=== PATIENT | female | born 1965 | race Caucasian/White ===

== ENCOUNTER → 2020-06-10 | Outpatient (CLI) | payer BC, MEDICARE ==
--- NOTE | 2020-06-16 10:42 | P.ARTDOP ---
Arterial Doppler LOWER EXTREMITY ARTERIAL DOPPLER: DATE OF SERVICE: 06/10/2020 Reason for study: Thigh pain when walking. Doppler waveforms: Multiphasic throughout on the right with somewhat blunted toe pressures. Atypical throughout on the left with blunted digital waveforms. Pulse volume recording: []. Pressure gradients: None on the right except at the toe level. Gradient above the thigh on the left.. Ankle-brachial indices: Greater than 1 on the right. 0.62 on the left.. Toe brachial indices: 0.48 on the right, 0.54 on the left Impression: Right is probably normal with low pressures secondary to vasospastic phenomenon. 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 Clinical correlation recommended..
== END | disposition home or self-care (01) ==
LOC: RADUSWWP 10:07
PROVIDERS: ATTEND Family Medicine
DX: M79.606 Pain in leg, unspecified (principal)
CPT/HCPCS: 93923

== ENCOUNTER → 2020-07-27 | Outpatient (CLI) | payer BC, MEDICARE ==
[2020-07-27 09:45] LABS: HCT 41.7 % (34.0-46.0); MCH 32.6 pg (25.0-35.0); MCHC 33.7 g/dL (31.0-37.0); MCV 96.9 fL (80.0-100.0); Mean Platelet Volume 7.6; Platelet Count 318 k/uL (150-450); RDW 13.1 % (11.5-15.5); WBC 7.2 k/uL (3.8-10.6)
[2020-07-27 09:49] LABS: Potassium 4.3 mmol/L (3.5-5.1)
== END | disposition home or self-care (01) ==
LOC: LABPAT 07:52
PROVIDERS: ATTEND Internal Medicine Interventional Cardiology
DX: Z01.818 Encounter for other preprocedural examination (principal); I70.213 Atherosclerosis of native arteries of extremities with intermittent claudication, bilateral legs
CPT/HCPCS: 36415; 80051; 82565; 84520; 85027

== ENCOUNTER → 2020-08-23 | Outpatient (CLI) | payer BC, MEDICARE ==
[2020-08-23 08:56] LABS: HGB 13.8 gm/dL (11.4-16.0); MCH 32.5 pg (25.0-35.0); MCHC 33.7 g/dL (31.0-37.0); MCV 96.5 fL (80.0-100.0); Mean Platelet Volume 7.6; Platelet Count 285 k/uL (150-450); RBC 4.25 m/uL (3.80-5.40); RDW 13.3 % (11.5-15.5); WBC 7.2 k/uL (3.8-10.6)
[2020-08-23 15:58] LABS: African American GFR (CKD) 84.6 (60.0-200.0); Anion Gap 9.9 mmol/L (4.00-12.00); Carbon Dioxide 25.1 mmol/L (21.6-31.8); Potassium 4.1 mmol/L (3.5-5.5)
== END | disposition home or self-care (01) ==
LOC: LABWHC1 07:59
PROVIDERS: ATTEND Internal Medicine Interventional Cardiology
DX: Z01.818 Encounter for other preprocedural examination (principal); I70.212 Atherosclerosis of native arteries of extremities with intermittent claudication, left leg
CPT/HCPCS: 36415; 80051; 82565; 84520; 85027

== ENCOUNTER 2020-09-01 06:23 | Day surgery (SDC) | payer BC, MEDICARE ==
[2020-08-30 10:25] VITALS: BMI 26.3
[2020-09-01] MEDS ORDERED: ASPIRIN 325 MG TAB PO PRN (06:29)
[2020-09-01] MEDS ORDERED: HEPARIN SODIUM,PORCINE 2,500 UNIT in SODIUM CHLORIDE 0.9% 250 ML IRRIGATION PRN (06:29)
[2020-09-01] MEDS ORDERED: HEPARIN SODIUM,PORCINE 10,000 UNIT in SODIUM CHLORIDE 0.9% 1,000 ML IRRIGATION PRN (06:29)
[2020-09-01] MEDS ORDERED: ZOLPIDEM 5 MG TAB PO PRN (06:29)
[2020-09-01] MEDS ORDERED: SODIUM CHLORIDE 0.9% 1,000 ML in EMPTY BAG 1 BAG IV ONE (06:29)
[2020-09-01] MEDS ORDERED: ALPRAZolam 0.25 MG TAB PO PRN (06:29)
[2020-09-01] MEDS ORDERED: MIDAZOLAM 2 MG/2 ML VIAL IVP ONE (07:45)
[2020-09-01] MEDS ORDERED: LIDOCAINE 1% INJ 10MG/ML (20 ML MDV) SQ ONE (07:47)
[2020-09-01] MEDS ORDERED: fentaNYL (PF) 50 MCG/ML 2 ML AMP IVP ONE (07:49)
[2020-09-01] MEDS ORDERED: MIDAZOLAM 2 MG/2 ML VIAL IV ONE (08:00)
[2020-09-01] MEDS ORDERED: HYDROmorphone 1 MG/ML 1 ML SYRINGE IVP ONE (08:00)
[2020-09-01] MEDS ORDERED: CLOPIDOGREL 75 MG TAB PO ONE (08:37)
[2020-09-01] MEDS ORDERED: IOPAMIDOL-370 100ML BTL INJ ONE (08:37)
[2020-09-01] MEDS ORDERED: IBUPROFEN 600 MG TAB PO PRN (08:45)
[2020-09-01] MEDS ORDERED: ALPRAZolam 0.5 MG TAB PO PRN (08:45)
[2020-09-01] MEDS ORDERED: SODIUM CHLORIDE 0.9% 1,000 ML in EMPTY BAG 1 BAG IV SCH (08:45)
[2020-09-01 09:14] VITALS: RESP 16
--- NOTE | 2020-09-01 09:24 | IR ---
Fluoroscopy HISTORY: Pain in left leg 8.6 minutes fluoroscopy time supplied to the referring clinician. 369 intraoperative C-arm images do cument the procedure. See dictated report from cardiology.
--- NOTE | 2020-09-01 09:28 | LTR ---
September 01, 2020 Re: Franca Figueroa Dear Dr. Banerjee: Ms. Franca Figueroa underwent today successful percutaneous intervention of totally occluded left iliac artery with an excellent angiographic result and without any complication. Thank you again for allowing me to participate in the care of the patient and please do not hesitate to call if you have any question or concern. Sincerely, MD ESTELLA Perez / TERRIEN: [id number] /
--- NOTE | 2020-09-01 09:40 | AN ---
ANGIOGRAPHY REPORT PERCUTANEOUS PERIPHERAL INTERVENTION: DATE OF SERVICE: September 01, 2020 PERFORMING PHYSICIAN: Arash Jeong MD. PROCEDURE PERFORMED: 1. Successful stenting of the left external iliac artery using 6.0 x 59 mm balloon expandable stent with an excellent angiographic results. 2. Intravascular ultrasound (IVUS) of the left external iliac artery. 3. Left external iliac artery angiogram. 4. Left lower extremity angiogram. 5. Right common femoral artery angiogram. 6. Ultrasound-guided access of the right common femoral artery. INDICATION: This is a 54-year-old female patient who was seen in the office recently for left leg intermittent claudication. She underwent an angiogram and that revealed occluded left external iliac artery and she was brought today to undergo an intervention. APPROACH: Right common femoral artery. COMPLICATION: None. LEVEL OF SEDATION: Moderate with a sedation length of 74 minutes. PROCEDURE DESCRIPTION: After obtaining an informed consent, the patient was brought to the cardiac slab depiler operator. The right common femoral artery was cannulated using micropuncture technique and a micropuncture wire passed easily then I placed an 11 cm 5-Moldovan sheath at the right common femoral artery. After that I did an aortogram to assess the lesion in the left external iliac artery, that was performed using 5-Moldovan pigtail catheter. After that I did exchange my 11 cm 5-Moldovan sheath into 55 cm 6-Moldovan Raabe sheath using 0.035 stiff Glidewire with backup support of 5-Moldovan RIM catheter. After that I did left external iliac artery angiogram and left lower extremity angiogram. The lesion was crossed using 0.035 stiff Glidewire, which was after that exchanged into 0.014 wire using 0.035 CXI catheter. After that I did intravascular ultrasound which revealed an area of about 6 mm in diameter. Predilatation was performed using 5 mm balloon and then I deployed 6 x 59 mm balloon expandable stent. The stent was positioned under fluoroscopy guidance and deployed under fluoroscopic guidance. After that I did an angiogram which showed good angiographic results. That was documented by IVUS as well. The procedure was completed without any complication. After that, I pulled the sheath back to the right common femoral artery before I did the right common femoral artery angiogram and before I deployed the Perclose device. The procedure was performed without any complication. Please note that the patient was given a total of 6000 units of heparin IV at the beginning of the procedure with continuous ACT monitoring throughout the procedure. POSTPROCEDURE MANAGEMENT: 1. Dual anti-platelet therapy. 2. Risk factor modifications. 3. Follow up with the patient. ESTELLA / ADIEL: [id number] /
[2020-09-01] MEDS: FAMOTIDINE 20 MG TAB PO SCH (10:01)
[2020-09-01] MEDS ORDERED: CYCLOBENZAPRINE 5 MG TAB PO SCH (21:00)
[2020-09-02 02:10] VITALS: TEMP 97.9
[2020-09-02] MEDS: FAMOTIDINE 20 MG TAB PO SCH (07:12)
[2020-09-02 07:57] VITALS: BP 143/88; PULSE 72
[2020-09-02 08:34] LABS: Basophils # (A) 0.04 X 10*3/uL (0.00-0.10); Basophils % (A) 0.5 %; Eosinophils # (A) 0.35 X 10*3/uL (0.04-0.35); Eosinophils % (A) 4.5 %; HCT 36.7 % (37.2-46.3); Lymphocytes # (A) 1.79 X 10*3/uL (0.90-5.00); Lymphocytes % (A) 22.9 %; MCH 31.7 pg (27.0-32.0); MCHC 32.7 g/dL (32.0-37.0); MCV 96.8 fL (80.0-97.0); Mean Platelet Volume 10.3 fL (9.5-12.2); Monocytes % (A) 10.3 %; Neutrophils % (A) 61.5 %; Platelet Count 258 X 10*3/uL (140-440); RBC 3.79 X 10*6/uL (4.10-5.20)
[2020-09-02 10:23] LABS: African American GFR (CKD) 97.6 (60.0-200.0); Anion Gap 6.9 mmol/L (4.00-12.00); BUN/Creat Ratio 26.25 Ratio (12.00-20.00); Calcium 8.7 mg/dL (8.7-10.3); Carbon Dioxide 25.1 mmol/L (21.6-31.8); Non-African American GFR(CKD) 84.2 (60.0-200.0); Potassium 4.1 mmol/L (3.5-5.5)
--- NOTE | 2020-09-02 21:21 | DS ---
DISCHARGE SUMMARY BRIEF HISTORY: This is a 54-year-old female patient who underwent yesterday successful stenting of the left external iliac artery. The procedure was performed from the right groin, which is soft and nontender and without any bruises. The patient is going to be discharged home on dual anti-platelet therapy and high- intensity statin. MMODL / TERRIEN: [id number] /
== END 2020-09-02 09:53 | disposition home or self-care (01) ==
LOC: CATHCVL 06:23 → 6NMEDSUR 08:34 → CATHCVL 09-02 09:53
PROVIDERS: ATTEND Internal Medicine Interventional Cardiology
DX: I74.5 Embolism and thrombosis of iliac artery (principal); I73.9 Peripheral vascular disease, unspecified; E78.5 Hyperlipidemia, unspecified; Z82.49 Family history of ischemic heart disease and other diseases of the circulatory system; Z88.5 Allergy status to narcotic agent; Z87.891 Personal history of nicotine dependence; Z79.1 Long term (current) use of non-steroidal anti-inflammatories (NSAID); Z79.899 Other long term (current) drug therapy
CPT/HCPCS: 37221; 75710; 37252; 80048; 85025; C1894 ×3; C1769 ×5; C1876; C1753; C1760; C1725; J2250; J2001; J3010; J1170; J1644; Q9967

== ENCOUNTER → 2021-03-04 | Outpatient (CLI) | payer BC, MEDICARE ==
[2021-03-04 13:01] LABS: HCT 42.3 % (34.0-46.0); HGB 14.1 gm/dL (11.4-16.0); MCHC 33.4 g/dL (31.0-37.0); MCV 95.7 fL (80.0-100.0); Mean Platelet Volume 7.8; Platelet Count 311 k/uL (150-450); RBC 4.42 m/uL (3.80-5.40); RDW 13.9 % (11.5-15.5); WBC 7.5 k/uL (3.8-10.6)
[2021-03-04 13:09] LABS: Potassium 4.6 mmol/L (3.5-5.1)
== END | disposition home or self-care (01) ==
LOC: LABPAT 11:55
PROVIDERS: ATTEND Internal Medicine Interventional Cardiology
DX: Z01.812 Encounter for preprocedural laboratory examination (principal); R07.9 Chest pain, unspecified
CPT/HCPCS: 36415; 80051; 82565; 84520; 85027

== ENCOUNTER 2021-05-27 16:12 | Emergency (ER) | payer BC, MEDICARE ==
[2021-05-27 16:52] VITALS: TEMP 98.8
[2021-05-27 18:26] VITALS: BP 126/80; PULSE 93; RESP 20
--- NOTE | 2021-05-27 18:36 | US ---
EXAMINATION TYPE: US venous doppler duplex LE LT DATE OF EXAM: 05/27/2021 6:04 PM COMPARISON: NONE CLINICAL HISTORY: swelling. Ankle pain. On blood thinners. No injury. Recent cast. SIDE PERFORMED: Left TECHNIQUE: The lower extremity deep venous system is examined utilizing real time linear array sonog tomas with graded compression, doppler sonography and color-flow sonography. VESSELS IMAGED: Common Femoral Vein Deep Femoral Vein Greater Saphenous Vein * Femoral Vein Popliteal Vein Small Saphenous Vein * Proximal Calf Veins (* superficial vessels) Left Leg: Negative for DVT IMPRESSION: No evidence of deep vein thrombosis in the left leg.
--- NOTE | 2021-05-27 18:44 | ED ---
Extremity Problem HPI - General Chief complaint: Extremity Problem,Nontraumatic Stated complaint: R/O DVT Time Seen by Provider: 05/27/21 17:28 Source: patient Mode of arrival: ambulatory Limitations: no limitations - History of Present Illness Initial comments: Franca is a 55-year-old female who is was sent to the emergency department today by her business information manager for evaluation of a possible DVT. Patient has apparently had intermittent casting on her left foot. She began having some pain in her left calf yesterday, cast was removed today and she was told to come to the emergency department for evaluation of a possible DVT. He has a history of TIAs in the past she is on aspirin and Plavix. She's not had any significant swelling or edema of that leg. Kyle has been somewhat painful while in the cast and despite having the cast taken off she does have some numbness on the inner foot. - Related Data Home Medications Medication Instructions Recorded Confirmed Ibuprofen [Motrin] 600 mg PO Q8HR PRN 10/15/15 09/01/20 ALPRAZolam [Xanax] 0.5 mg PO DAILY PRN 08/30/20 09/01/20 Cyclobenzaprine [Flexeril] 5 mg PO HS 08/30/20 09/01/20 Famotidine 40 mg PO DAILY 08/30/20 09/01/20 Previous Rx's Medication Instructions Recorded Aspirin 81 mg PO DAILY #90 chewable 09/02/20 Atorvastatin Calcium [Lipitor] 80 mg PO DAILY #90 tablet 09/02/20 Clopidogrel [Plavix] 75 mg PO DAILY #90 tablet 09/02/20 Allergies Allergy/AdvReac Type Severity Reaction Status Date / Time codeine Allergy Nausea & Verified 05/27/21 16:52 Vomiting narcotic pain medication Allergy Severe Nausea & Uncoded 05/27/21 16:52 Vomiting Review of Systems ROS Statement: Those systems with pertinent positive or pertinent negative responses have been documented in the HPI. ROS Other: All systems not noted in ROS Statement are negative. Past Medical History Past Medical History: CVA/TIA Additional Past Medical History / Comment(s): has had 7 TIA's in the past-no effects from them, varicose vein, hiatal hernia, History of Any Multi-Drug Resistant Organisms: None Reported Past Surgical History: Cholecystectomy, Hysterectomy, Orthopedic Surgery Additional Past Surgical History / Comment(s): yg wrist surgery, left shoulder arthroscopy, left hand ring fingery surgery Past Anesthesia/Blood Transfusion Reactions: Postoperative Nausea & Vomiting (PONV) Past Psychological History: No Psychological Hx Reported Smoking Status: Never smoker Past Alcohol Use History: None Reported Past Drug Use History: None Reported - Past Family History Mother Family Medical History: Cancer, Deep Vein Thrombosis (DVT) General Exam - General Exam Comments Initial Comments: Physical Exam GENERAL: Patient is well-developed and well-nourished. Patient is nontoxic and well-hydrated and is in no distress. HENT: Normocephalic, Atraumatic. EYES: PERRL, EOMI PULMONARY: Unlabored respirations. CARDIOVASCULAR: RRR Warm and well perfused extremities ABDOMEN: Non-distended SKIN: No rashes or bruising : Deferred NEUROLOGIC: Alert and oriented Normal speech Normal gait MUSCULOSKELETAL: Moving all extremities with no apparent injury Left leg is actually centered from the right from recurrent casting, there is no pitting edema, there are strong pulses bilaterally, cap refill is less than 2 seconds bilaterally PSYCHIATRIC: No SI/HI Limitations: no limitations Course Vital Signs 05/27/21 05/27/21 16:49 18:24 Temperature 98.8 F Pulse Rate 75 93 Respiratory 16 20 Rate Blood Pressure 119/69 126/80 O2 Sat by Pulse 98 97 Oximetry Medical Decision Making - Medical Decision Making The patient was seen and evaluated this physical exam findings suggestive of the however ultrasound was obtained and revealed no evidence of DVT. Results were discussed with the patient. Discussed with patient that likely her pain was from casting she may have paresthesias in the left foot secondary to nerve compression or recommended to continue follow-up with business information manager. Disposition Clinical Impression: Leg pain Disposition: HOME SELF-CARE Condition: Stable Instructions (If sedation given, give patient instructions): Leg Pain (ED) Is patient prescribed a controlled substance at d/c from ED?: No Referrals: Rigo Banerjee MD [Primary Care Provider] - 1-2 days
== END 2021-05-27 19:26 | disposition home or self-care (01) ==
LOC: EC 16:12
DX: M79.605 Pain in left leg (principal); Z86.73 Personal history of transient ischemic attack (TIA), and cerebral infarction without residual deficits; Z79.82 Long term (current) use of aspirin; Z79.02 Long term (current) use of antithrombotics/antiplatelets; Z88.5 Allergy status to narcotic agent; Z90.49 Acquired absence of other specified parts of digestive tract; Z90.710 Acquired absence of both cervix and uterus
CPT/HCPCS: 99283

== ENCOUNTER → 2021-09-14 | Outpatient (CLI) | payer BC, MEDICARE | END | disposition home or self-care (01) | LOC: RADUSWWP 08:50 | PROVIDERS: ATTEND Podiatrist | DX: Z01.818 Encounter for other preprocedural examination (principal); M25.572 Pain in left ankle and joints of left foot; Z98.62 Peripheral vascular angioplasty status | CPT/HCPCS: 93923 ==

== ENCOUNTER → 2022-11-20 | Outpatient (CLI) | payer BC, MEDICARE ==
--- NOTE | 2022-11-21 17:48 | MM ---
Reason for Exam: Screening (asymptomatic). Last mammogram was performed 12 year(s) and 9 month(s) ago. Patient History: Menarche at age 18. First Full-Term at age 29. Postmenopausal. Risk Values: Delfina 5 year model risk: 1.2%. NCI Lifetime model risk: 8.1%. Prior Study Comparison: No prior studies available for comparison. Tissue Density: The breast tissue is heterogeneously dense. This may lower the sensitivity of mammography. Findings: Analyzed By CAD. No significant mass, suspicious microcalcification, or other discrete abnormality seen. Overall Assessment: Negative, BI-RAD 1 Management: Screening Mammogram of both breasts in 1 year. 1. Patient should continue monthly self breast exams. 2. A clinical breast exam by your physician is recommended on an annual basis. 3. This exam should not preclude additional follow-up of suspicious palpable abnormalities. Electronically signed and approved by: Saul Wang M.D. Radiologist
== END | disposition home or self-care (01) ==
LOC: RADMAMWWP 13:30
PROVIDERS: ATTEND Family Medicine
DX: Z12.31 Encounter for screening mammogram for malignant neoplasm of breast (principal); Z78.0 Asymptomatic menopausal state
CPT/HCPCS: 77067

== ENCOUNTER → 2023-11-22 | Outpatient (CLI) | payer BC, MEDICARE ==
--- NOTE | 2023-11-26 09:02 | MM ---
Reason for Exam: Screening (asymptomatic). Last screening mammogram was performed 12 month(s) ago. Patient History: Menarche at age 18. First Full-Term at age 29. Postmenopausal. Risk Values: Delfina 5 year model risk: 1.3%. NCI Lifetime model risk: 8.0%. Prior Study Comparison: 10/04/2001 Bilateral Special View Mammogram, [facility]. 02/24/2010 Bilateral Screening Mammogram, [facility]. 11/20/2022 Bilateral MG screening mammo w CAD, [facility]. Tissue Density: The breasts are heterogeneously dense, which may obscure small masses. Findings: Analyzed By CAD. There is a new 6 mm nodule along the lower inner margin left breast. No suspicious grouped calcifications. Punctate benign calcification within the right breast. Overall Assessment: Incomplete: need additional imaging evaluation, BI-RAD 0 Management: Diagnostic Mammogram of the left breast. . Patient should continue monthly self-breast exams. A clinical breast exam by your physician is recommended on an annual basis. This exam should not preclude additional follow-up of suspicious palpable abnormalities. Note on Delfina scores and lifetime risk: 1. A Delfina score greater than 3% is considered moderate risk. If this is the case, consider specialist referral to assess eligibility for a risk reducing agent. 2. If overall lifetime risk for the development of breast cancer is 20% or higher, the patient may qualify for future screening with alternating mammogram and breast MRI. Electronically signed and approved by: Rigo Juarez M.D. Radiologis
== END | disposition home or self-care (01) ==
LOC: RADMAMWWP 08:14
PROVIDERS: ATTEND Family Medicine
DX: Z12.31 Encounter for screening mammogram for malignant neoplasm of breast (principal); Z78.0 Asymptomatic menopausal state
CPT/HCPCS: 77067

== ENCOUNTER → 2023-11-29 | Outpatient (CLI) | payer BC, MEDICARE ==
--- NOTE | 2023-11-29 09:46 | MM ---
Reason for Exam: Additional evaluation requested from abnormal screening. Last screening mammogram was performed less than 1 month ago. Patient History: Menarche at age 18. First Full-Term at age 29. Postmenopausal. Risk Values: Delfina 5 year model risk: 1.3%. NCI Lifetime model risk: 8.0%. Prior Study Comparison: 02/24/2010 Bilateral Screening Mammogram, [facility]. 11/20/2022 Bilateral MG screening mammo w CAD, [facility]. 11/22/2023 Bilateral MG screening mammo w CAD, [facility]. Tissue Density: Left: The breasts are heterogeneously dense, which may obscure small masses. Findings: Analyzed By CAD. Heart is stable. There is a slight area of increased density within the lower inner anterior aspect left breast. This is less distinct on the compression views. This is not apparent on the lateral view. This is approximately 0.5 cm in size located 6 cm from the nipple. Additional evaluation with ultrasound is recommended. Overall Assessment: Incomplete: need additional imaging evaluation, BI-RAD 0 Management: Diagnostic Breast Ultrasound of the left breast. A negative mammogram report should not preclude additional follow up of suspicious palpable abnormalities. Patient should continue monthly self breast exam. A clinical breast exam by your physician is recommended on an annual basis and results should be correlated with mammographic findings. Note on Delfina scores and lifetime risk: 1. A Delfina score greater than 3% is considered moderate risk. If this is the case, consider specialist referral to assess eligibility for a risk reducing agent. 2. If overall lifetime risk for the development of breast cancer is 20% or higher, the patient may qualify for future screening with alternating mammogram and breast MRI. Electronically signed and approved by: Fuad Salcido D.O. Radiologis
--- NOTE | 2023-11-29 10:38 | USB ---
Reason for Exam: Additional evaluation requested from abnormal screening. Patient History: Menarche at age 18. First Full-Term at age 29. Postmenopausal. Risk Values: Delfina 5 year model risk: 1.3%. NCI Lifetime model risk: 8.0%. Technique: Method: Targeted. Prior Study Comparison: 02/24/2010 Bilateral Screening Mammogram, [facility]. 11/20/2022 Bilateral MG screening mammo w CAD, [facility]. 11/22/2023 Bilateral MG screening mammo w CAD, [facility]. Findings: The lower inner quadrant of the left breast, the axilla of the left breast and the retroareolar of the left breast were scanned. There is a solid area with a hypoechoic center. This may be taller than wide. This area measures 0.3 x 0.4 x 0.5 cm and contains vascular flow. Area corresponds with the mammogram. Overall Assessment: Suspicious, BI-RAD 4 Management: Ultrasound Core Biopsy of the left breast. A clinical breast exam by your physician is recommended on an annual basis and results should be correlated with mammographic findings. This exam should not preclude additional follow-up of suspicious palpable abnormalities. Results were given to the patient verbally at the time of exam. Electronically signed and approved by: Fuad Salcido D.O. Radiologis
== END | disposition home or self-care (01) ==
LOC: RADMAMWWP 09:21
PROVIDERS: ATTEND Family Medicine
DX: R92.332 Mammographic heterogeneous density, left breast (principal); Z78.0 Asymptomatic menopausal state
CPT/HCPCS: 77061; 77065

== ENCOUNTER → 2023-12-07 | Day surgery (SDC) | payer BC, MEDICARE ==
--- NOTE | 2023-12-07 16:28 | USB ---
Risk Values: Delfina 5 year model risk: 1.3%. NCI Lifetime model risk: 8.0%. Findings: The patient's mammogram and ultrasound is reviewed. At the 8:00 position, 5 cm from the nipple, there is redemonstration of a vague echogenic area currently measuring 6 mm versus 7 mm, previously. The internal associated cystic portion is smaller now 2 mm versus 5 mm, previously. Given these changes, patient's history of blood thinner use, superficial location, and appearance on mammogram, a small hematoma is favored. We are deferring biopsy at this time. 3 month follow-up diagnostic left breast mammogram and left breast ultrasound will be recommended to ensure involution. Results and impression were discussed with the patient. Management: Diagnostic Mammogram of the left breast in 3 months. Additional 3 month followup left breast ultrasound. Electronically signed and approved by: Saul Wang M.D. Radiologist
== END ==
LOC: RADUSWWP 09:35
PROVIDERS: ATTEND Family Medicine
DX: R92.8 Other abnormal and inconclusive findings on diagnostic imaging of breast (principal)

== ENCOUNTER → 2024-06-25 | Outpatient (CLI) | payer BC, MEDICARE ==
[2024-06-26 02:32] LABS: HCT 42.6 % (37.2-46.3); HGB 14.1 g/dL (12.0-15.0); MCH 31.3 pg (27.0-32.0); MCHC 33.1 g/dL (32.0-37.0); MCV 94.7 FL (80.0-97.0); Mean Platelet Volume 10.7 FL (9.5-12.2); NRBC Per 100 WBC 0 X 10*3/uL (0.00-0.01); Platelet Count 312 X 10*3/uL (140-440); RDW 12.9 % (11.5-14.5); WBC 8.73 X 10*3/uL (4.50-10.00)
[2024-06-26 03:41] LABS: Carbon Dioxide 22.9 mmol/L (21.6-31.8); Chloride 106 mmol/L (96-109); Potassium 4.5 mmol/L (3.5-5.5); Sodium 142 mmol/L (135-145)
== END | disposition home or self-care (01) ==
LOC: LABPAT 15:13
PROVIDERS: ATTEND Internal Medicine Interventional Cardiology
DX: Z01.812 Encounter for preprocedural laboratory examination (principal); I70.213 Atherosclerosis of native arteries of extremities with intermittent claudication, bilateral legs
CPT/HCPCS: 80051; 82565; 84520; 85027

== ENCOUNTER 2024-07-02 06:00 | Day surgery (SDC) | payer BC, MEDICARE ==
[2024-06-25 11:44] VITALS: BMI 24.6
[~2024-07-02 06:00] MED LIST: ALPRAZolam 0.25 MG TAB PO PRN; ALPRAZolam 0.5 MG TAB PO PRN; HEPARIN SODIUM,PORCINE (1 ML) 2,500 UNIT in SODIUM CHLORIDE 0.9% 250 ML IRRIGATION PRN; HEPARIN SODIUM,PORCINE 10,000 UNIT in SODIUM CHLORIDE 0.9% 1,000 ML IRRIGATION PRN; ZOLPIDEM 5 MG TAB PO PRN
[2024-07-02] MEDS: EMPTY BAG 1 BAG with SODIUM CHLORIDE 0.9% 1,000 ML IV SCH (06:36)
[2024-07-02] MEDS: IV FLUID CONTINUATION 1,000 ML IV ONE (06:37)
[2024-07-02] MEDS: HEPARIN SODIUM,PORCINE 10,000 UNIT in SODIUM CHLORIDE 0.9% 1,000 ML IRRIGATION ONE (07:39)
[2024-07-02] MEDS: MIDAZOLAM 2 MG/2 ML VIAL IVP ONE ×4 (07:42→08:21)
[2024-07-02] MEDS: LIDOCAINE 1% INJ 10MG/ML (20 ML MDV) SQ ONE ×2 (07:43→07:44)
[2024-07-02] MEDS: HEPARIN SODIUM 1,000 UN/ML (10ML VL) IVP ONE ×2 (07:58→08:55)
[2024-07-02] MEDS: IOPAMIDOL-370 100ML BTL INJ ONE (09:19)
[2024-07-02] MEDS ORDERED: ALPRAZolam 0.5 MG TAB PO PRN (09:23)
[2024-07-02] MEDS ORDERED: NALOXONE 0.4 MG/ML 1 ML VIAL IVP PRN (09:25)
--- NOTE | 2024-07-02 09:34 | P.PCN ---
Date of Procedure: 07/02/24 Operative Findings: PERCUTANEOUS PERIPHERAL INTERVENTION Performing physician Arash Jeong M.D. Procedure performed 1. Successful balloon angioplasty and stenting of the right SFA 2. Successful stenting of the left common iliac artery 3. Adjunctive use of IVUS and atherectomy 4. An aortogram with runoff 5. ultrasound-guided access of the left common femoral artery and left common femoral artery angiogram Indication Intermittent claudication in this 58-year-old female patient who underwent an a rterial duplex study came in to be abnormal Approach Left common femoral Complications None Level of sedation Moderate with a sedation time of 88 minutes Procedure description After obtaining informed consent the patient was brought to the cardiac Corporate Aircraft Mechanic. The left common femoral artery was cannulated using micropuncture technique under ultrasound guidance a micropuncture wire passed easily then I placed a 6 Tanzanian 11 cm sheath at the left common femoral artery. After that I did an aortogram with runoff using 5 Tanzanian pigtail catheter which was initially placed at the level of the renal arteries and it was pulled back into above the bifurcation of the aorta into right and left common iliac arteries. After the angiogram was performed and the runoff was reviewed we decided to intervene on the right SFA and left iliac. Anticoagulation was initiated using heparin with continuous ACT monitoring. Subsequently I did exchange my 11 cm 6 Tanzanian sheath into a 70 cm 6 Tanzanian sheath using 035 stiff Glidewire. I did go up and over to the right SFA using a 3 5 stiff Glidewire with the backup support of 5 Tanzanian rim catheter. Subsequently the sheath was advanced over the wire and the catheter to the right common femoral artery. An angiogram was performed at that point to identify in the lesion in the right SFA. The lesion was crossed using a 1 4 wire. I did IVUS which showed a soft lesion appeared to be extremely tight. I did atherectomy using the Rota Ryder device. After that balloon angioplasty was performed using 5 mm balloon with an adequate angiographic results and for that reason I decided to stent. I deployed a 6.0 x 80 mm Zilver PTX drug-coated stent with an angiogram was performed after that and showed that there was an edge dissection did not tackle with balloon angioplasty which I decided to cover using another stent. I deployed another 6.0 x 60 mm Zilver PTX drug-coated stent with about 2 mm overlap between the 2 stents. An angiogram after that after postdilatation was performed showed good angiographic results. After that I did pull the sheath into the left common iliac artery and angiogram also was performed and showed that there was a dissection and a tight lesion involving the left common iliac artery just proximal to the stent in the left external iliac artery. I did direct stenting on that using 8.0 x 59 mm balloon expandable stent with an excellent angiographic results. By the end I did exchange my long sheath into short sheath using a 3 5 stiff Glidewire before I did selective left common femoral artery angiogram. The procedure was completed with no complication Postprocedure management 1. Dual antiplatelet therapy 2. Aggressive cholesterol control 3. Risk factors modification 4. Follow-up with the patient
[2024-07-02] MEDS: SODIUM CHLORIDE 0.9% 1,000 ML in EMPTY BAG 1 BAG IV SCH (12:55)
[2024-07-02 14:44] LABS: Basophils % (A) 1 %; Eosinophils # (A) 0.2 k/uL (0-0.7); Eosinophils % (A) 3 %; HCT 35.3 % (34.0-46.0); HGB 11.7 gm/dL (11.4-16.0); Lymphocytes # (A) 1.2 k/uL (1.0-4.8); Lymphocytes % (A) 19 %; MCH 31.7 pg (25.0-35.0); MCHC 33.3 g/dL (31.0-37.0); MCV 95.2 fL (80.0-100.0); Mean Platelet Volume 7.3; Monocytes # (A) 0.4 k/uL (0-1.0); Monocytes % (A) 7 %; Neutrophils # (A) 4.3 k/uL (1.3-7.7); Neutrophils % (A) 70 %; Platelet Count 209 k/uL (150-450); RDW 12.9 % (11.5-15.5); WBC 6.2 k/uL (3.8-10.6)
[2024-07-02 14:54] LABS: African American GFR (CKD) >90 (>60 ml/min/1.73 sqM); Anion Gap 4 mmol/L; Blood Urea Nitrogen 14 mg/dL (7-17); Calcium 8.1 mg/dL (8.4-10.2); Carbon Dioxide 21 mmol/L (22-30); Chloride 114 mmol/L (98-107); Glucose 129 mg/dL (74-99); Non-African American GFR(CKD) 79 (>60 ml/min/1.73 sqM); Potassium 3.6 mmol/L (3.5-5.1); Sodium 139 mmol/L (137-145)
--- NOTE | 2024-07-02 15:26 | IR ---
EXAMINATION TYPE: IR stent intravas non coronary DATE OF EXAM: 07/02/2024 2:26 PM COMPARISON: Pre Operative Images if available both CT/MRI or plain film CLINICAL INDICATION: Female, 58 years old with history of RT LEG PAIN, 25.1MIN, 33.2 DAP; TECHNIQUE: IR stent intravas non coronary, multiple fluoroscopic images provided for procedure. Total fluoroscopy time: 25.1 minutes Total submitted images to PACS: [id number] DAP: 33.2 mGym2 Gycm2 uGym2 cGycm2 or equivalent. FINDINGS: IMPRESSION: 1. Report was generated for administrative purposes only. 2. Please see the operative/procedural note for further details. [facility], , 07/02/2024 3:24 PM
[2024-07-02] MEDS: CYCLOBENZAPRINE 5 MG TAB PO SCH (21:05)
[2024-07-03 01:27] VITALS: TEMP 99.3
[2024-07-03 05:20] LABS: African American GFR (CKD) >90 (>60 ml/min/1.73 sqM); Non-African American GFR(CKD) 88 (>60 ml/min/1.73 sqM)
[2024-07-03] MEDS: LEVOTHYROXINE 75 MCG TAB PO SCH (06:57)
[2024-07-03 08:19] VITALS: BP 108/63; PULSE 91; RESP 16
[2024-07-03] MEDS: EZETIMIBE 10 MG TAB PO SCH (08:47)
[2024-07-03] MEDS: FAMOTIDINE 20 MG TAB PO SCH (08:47)
[2024-07-03] MEDS: ATORVASTATIN 80 MG TAB PO SCH (08:47)
[2024-07-03] MEDS: ASPIRIN 81 MG PO SCH (08:47)
[2024-07-03] MEDS: FOLIC ACID 1 MG TAB PO SCH (08:47)
[2024-07-03] MEDS: CLOPIDOGREL 75 MG TAB PO SCH (08:47)
[2024-07-03] MEDS: CYANOCOBALAMIN 500 MCG TAB PO SCH (08:49)
== END 2024-07-03 10:28 | disposition home or self-care (01) ==
LOC: CATHCVL 06:00 → 6NMEDSUR 12:19 → CATHCVL 07-03 10:28
PROVIDERS: ATTEND Internal Medicine Interventional Cardiology
DX: I70.213 Atherosclerosis of native arteries of extremities with intermittent claudication, bilateral legs (principal); I10 Essential (primary) hypertension; E78.5 Hyperlipidemia, unspecified; I35.1 Nonrheumatic aortic (valve) insufficiency; F17.210 Nicotine dependence, cigarettes, uncomplicated; Z86.73 Personal history of transient ischemic attack (TIA), and cerebral infarction without residual deficits; Z82.49 Family history of ischemic heart disease and other diseases of the circulatory system; Z79.82 Long term (current) use of aspirin; Z79.02 Long term (current) use of antithrombotics/antiplatelets; Z79.890 Hormone replacement therapy; Z79.899 Other long term (current) drug therapy; Z88.5 Allergy status to narcotic agent
CPT/HCPCS: 37221; 37226; 75625; 75716; 37252; 80048; 82565; 85025; C2628; J2250; J1644 ×2; J2003; Q9967

== ENCOUNTER → 2024-08-29 | Outpatient (CLI) | payer BC, MEDICARE ==
[2024-08-29 15:06] LABS: HCT 40.2 % (37.2-46.3); HGB 13.2 g/dL (12.0-15.0); MCH 31.4 pg (27.0-32.0); MCHC 32.8 g/dL (32.0-37.0); MCV 95.5 FL (80.0-97.0); Mean Platelet Volume 10.6 FL (9.5-12.2); NRBC Per 100 WBC 0 X 10*3/uL (0.00-0.01); Platelet Count 274 X 10*3/uL (140-440); RBC 4.21 X 10*6/uL (4.10-5.20); RDW 13.2 % (11.5-14.5); WBC 7.11 X 10*3/uL (4.50-10.00)
[2024-08-29 15:14] LABS: Blood Urea Nitrogen 15.6 mg/dL (9.0-27.0); Carbon Dioxide 24.9 mmol/L (21.6-31.8); Chloride 108 mmol/L (96-109); Potassium 4.6 mmol/L (3.5-5.5); Sodium 144 mmol/L (135-145)
== END | disposition home or self-care (01) ==
LOC: LABPAT 11:54
PROVIDERS: ATTEND Internal Medicine Interventional Cardiology
DX: Z01.812 Encounter for preprocedural laboratory examination (principal); I73.9 Peripheral vascular disease, unspecified
CPT/HCPCS: 80051; 82565; 84520; 85027